=== PATIENT | male | born 1970 | race Caucasian/White ===

== ENCOUNTER 2023-07-29 11:04 | Emergency (ER) | payer BC ==
[2023-07-29 11:36] LABS: Absolute Lymphocytes (CBC) 1.9 K/uL (0.7-4.9); Hematocrit 45.4 % (39.6-49.0); Lymphocytes % 22.7 % (15.3-44.8); MCV 93.1 fL (80-100); MPV 7.7 fL (7.6-11.3); Platelets 207 thou/uL (152-406); RBC Red Blood Cell Count 4.88 M/uL (4.33-5.43)
[2023-07-29 11:42] LABS: Protime INR 1.77
[2023-07-29 11:55] LABS: Potassium 3.5 mEq/L (3.5-5.1); Troponin High Sensitivity 7.2 pg/mL (<58.9)
--- NOTE | 2023-07-29 11:57 | RAD REPORT ---
EXAM DESCRIPTION: CT - Ct Stroke Brain Wo Cont - 07/29/2023 11:49 am CLINICAL HISTORY: STROKE ALERT COMPARISON: Head angio dated 07/29/2023 TECHNIQUE: Noncontrast head CT images were obtained without IV contrast. Multiplanar reformats were generated and reviewed. All CT scans are performed using dose optimization technique as appropriate and may include automated exposure control or mA/KV adjustment according to patient size. FINDINGS: No intracranial hemorrhage, mass, or edema. Midline structures are unremarkable. Normal ventricular caliber for age. Smith-white matter differentiation is preserved, without evidence of acute infarct. No abnormal extra- axial fluid collections. Mastoid air cells and visualized portions of the paranasal sinuses are clear. No acute bony findings. IMPRESSION: No evidence of an acute intracranial process. The findings were communicated to Joao Espinoza on 07/29/2023 at 11:53 hours.
--- NOTE | 2023-07-29 12:12 | RAD REPORT ---
EXAM DESCRIPTION: CT - Head angio - 07/29/2023 11:43 am CLINICAL HISTORY: vision changes, HTN COMPARISON: Ct Stroke Brain Wo Cont dated 07/29/2023 TECHNIQUE: Axial CT angiography images of the head was performed with multiplanar and maximum intens ity projection reconstructions. Images performed following intravenous administration of 100mL Isovue 370. All CT scans are performed using dose optimization technique as appropriate and may include automated exposure control or mA/KV adjustment according to patient size. FINDINGS: No evidence of large vessel occlusion. No evidence of aneurysm or dissection flap is detec marc. No flow-limiting stenosis or vascular malformation identified. Antegrade flow is seen in the vertebral arteries. The left vertebral artery is patent. The right vert ebral artery is not opacified. The visualized dural venous sinuses are grossly patent. IMPRESSION: Non opacification of the right vertebral artery, could be developmental or related to a contusion of indeterminate age. The basilar artery and its branches are patent. No other evidence of large vessel occlusion or flow-limiting stenosis.
--- NOTE | 2023-07-29 12:18 | RAD REPORT ---
EXAM DESCRIPTION: MRI - Brain Wo Cont - 07/29/2023 12:09 pm CLINICAL HISTORY: vision changes COMPARISON: Noncontrast head CT of the same day TECHNIQUE: Multiplanar multisequence MRI of the brain performed without IV contrast. FINDINGS: Motion artifact somewhat limits evaluation, despite attempts at repeat imaging. No evidence of acute infarct or other diffusion signal abnormality. No evidence of acute intracranial hemorrhage or abnormal extra-axial fluid collections. Ventricular caliber within normal for age. Midline structures are unremarkable. No mass effect or midline shift. Major vascular flow voids are preserved. Mastoid air cells and paranasal sinuses are clear. IMPRESSION: No acute intracranial process. No evidence of ventriculomegaly or mass effect.
--- NOTE | 2023-07-29 13:30 | ER ---
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 reports left eye being more bothersome. Coronavirus screen: At this time, the client does not indicate any symptoms associated with coronavirus-19. Ebola Screen: No symptoms or risks identified at this time. Initial Sepsis Screen: Does the patient meet any 2 criteria? No. Patient's initial sepsis screen is negative. Does the patient have a suspected source of infection? No. Patient's initial sepsis screen is negative. Risk Assessment: Do you want to hurt yourself or someone else? Patient reports no desire to harm self or others. Onset of symptoms was July 29, 2023. 11:14 Method Of Arrival: Ambulatory kc6 11:14 Acuity: YESSICA 3 kc6 Triage Assessment: 11:15 General: Appears in no apparent distress. comfortable, Behavior is calm, cooperative, kc6 appropriate for age. Pain: Denies pain. EENT: Reports blurred vision. Neuro: Level of Consciousness is awake, alert, obeys commands, Oriented to person, place, time, situation, Appropriate for age Product Designer are equal bilaterally Moves all extremities. Full function Gait is steady, Speech is normal, Facial symmetry appears normal, Pupils are PERRLA, Intact Denies weakness numbness headache. Cardiovascular: Capillary refill < 3 seconds. Respiratory: Airway is patent Trachea midline Respiratory effort is even, unlabored, Respiratory pattern is regular, symmetrical. GI: No signs and/or symptoms were reported involving the gastrointestinal system. : No signs and/or symptoms were reported regarding the genitourinary system. Derm: No signs and/or symptoms reported regarding the dermatologic system. Skin is intact, is healthy with good turgor, Skin is pink, warm \T\ dry. Musculoskeletal: No signs and/or symptoms reported regarding the musculoskeletal system. Circulation, motion, and sensation intact. Capillary refill < 3 seconds, Range of motion: intact in all extremities. Historical: - Allergies: 11:15 PENICILLINS; kc6 - PMHx: 11:15 Atrial fibrillation; Hypertensive disorder; mitral valve prolapse; Diverticulitis; kc6 - PSHx: 11:15 None; kc6 - Immunization history:: Client reports receiving the 2nd dose of the Covid vaccine, Flu vaccine is not up to date. - Social history:: Smoking status: Patient reports use of chewing tobacco. - Family history:: not pertinent. - Hospitalizations: : No recent hospitalization is reported. Screenin:14 VAN Screening: Arm Drift: Patient shows no arm weakness. Patient is VAN negative. kc6 Visual Disturbance: No visual disturbance noted. Aphasia: No aphasia noted. Neglect: No neglect noted. 11:16 [facility] Fall Risk Assessment (Adult) History of falling in the last 3 months, kc6 including since admission No falls in past 3 months (0 pts) Confusion or Disorientation No (0 pts) Intoxicated or Sedated No (0 pts) Impaired Gait No (0 pts) Mobility Assist Device Used No (0 pt) Altered Elimination No (0 pt) Score/Fall Risk Level 0 - 2 = Low Risk. Abuse screen: Denies threats or abuse. Denies injuries from another. Nutritional screening: No deficits noted. Tuberculosis screening: No symptoms or risk factors identified. Assessment: 11:17 Reassessment: please see triage assessment. [facility] 12:18 Reassessment: Patient appears in no apparent distress at this time. Patient and/or [facility] family updated on plan of care and expected duration. Pain level reassessed. Patient is alert, oriented x 3, equal unlabored respirations, skin warm/dry/pink. Patient denies pain at this time. Patient states feeling better. Patient states symptoms have improved. 13:13 Reassessment: Patient appears in no apparent distress at this time. No changes from 6 previously documented assessment. Patient and/or family updated on plan of care and expected duration. Pain level reassessed. Patient is alert, oriented x 3, equal unlabored respirations, skin warm/dry/pink. Vital Signs: 11:14 BP 164 / 100; Pulse 81; Resp 16 S; Temp 98.4(O); Pulse Ox 96% on R/A; Weight 95.25 kg kc6 (R); Height 5 ft. 7 in. (R); 12:18 BP 124 / 98; Pulse 69; Resp 19 S; Pulse Ox 98% on R/A; kc6 13:14 BP 148 / 88; Pulse 73; Resp 16 S; Pulse Ox 94% on R/A; kc6 11:14 Body Mass Index 32.89 (95.25 kg, 170.18 cm) kc6 NIH Stroke Scale Scores: 11:14 NIHSS Score: 0 kc6 ED Course: 11:06 Patient arrived in ED. mr 11:06 Jesus Lake is Private Physician. mr 11:08 Izabela Barboza, RN is Primary Nurse. kc6 11:12 Joao Espinoza MD is Attending Physician. rn 11:15 Triage completed. kc6 11:15 Arm band placed on. kc6 11:16 Patient maintains SpO2 saturation greater than 95% on room air. kc6 11:17 Patient has correct armband on for positive identification. Bed in low position. Call kc6 light in reach. Side rails up X 1. Client placed on continuous cardiac and pulse oximetry monitoring. NIBP monitoring applied. library monitor on. 11:45 CT Head Angio In Process Unspecified. EDMS 11:45 CT Stroke Brain w/o Contrast In Process Unspecified. EDMS 12:03 Brain Wo Cont MRI In Process Unspecified. EDMS 13:13 X-ray completed. Portable x-ray completed in exam room. Patient tolerated procedure mh1 well. 13:17 Stroke CXR 1 View In Process Unspecified. EDMS 13:28 Crystal Martin MD is Referral Physician. rn 13:47 No provider procedures requiring assistance completed. IV discontinued, intact, kc6 bleeding controlled, No redness/swelling at site. Pressure dressing applied. Administered Medications: No medications were administered Medication: 13:47 VIS not applicable for this client. kc6 Outcome: 13:29 Discharge ordered by . rn 13:47 Discharged to home ambulatory, with friend, kc6 13:47 Condition: improved 13:47 Discharge instructions given to patient, Instructed on discharge instructions, follow up and referral plans. Demonstrated understanding of instructions, follow-up care, 13:47 Patient left the ED. kc6 NIH Stroke Scale - NIH Stroke Score Date: 07/29/2023 Time: 11:14 Total Score = 0 10. Dysarthria (speech clarity - read or repeat words) - 0(Normal) 11. Extinction and Inattention (visual/tactile/auditory/spatial/personal) - 0(No abnormality) 1a. Level of Consciousness (LOC) - 0(Alert) 1b. Level of Consciousness (LOC) (Month \T\ Age) - 0(Both) 1c. LOC Commands (Open \T\ Closes Eyes/Block Out Machine Operator) - 0(Both) 2. Best Gaze (Lateral Gaze Paresis) - 0(Normal) 3. Visual Field Loss - 0(No visual loss) 4. Facial Palsy - 0(Normal) 5a. Left Arm: Motor (10-second hold) - 0(No drift) 5b. Right Arm: Motor (10-second hold) - 0(No drift) 6a. Left Leg: Motor (5-second hold - always test supine) - 0(No drift) 6b. Right Leg: Motor (5-second hold - always test supine) - 0(No drift) 7. Limb Ataxia (finger/nose \T\ heel/cisneros - test with eyes open) - 0(Absent) 8. Sensory Loss (pinprick arms/legs/face) - 0(Normal) 9. 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
--- NOTE | 2023-07-29 13:30 | EDPHYS ---
Physician Documentation [facility] Name: Elizabeth Crowder Age: 52 yrs Sex: Male : 1970 Arrival Date: 07/29/2023 Time: 11:04 Bed 20 Private MD: Jesus Lake ED Physician Joao Espinoza HPI: 07/29 11:43 This 52 yrs old Male presents to ER via Ambulatory with complaints of Vision Problem. rn 11:43 The patient is experiencing blurred vision, floaters, The patient sustained None. rn caused by an unknown mechanism. Onset: The symptoms/episode began/occurred this morning. Duration: the symptoms are continuous. Aggravated by nothing. Alleviated by nothing. Patient wears glasses. Severity of symptoms: At their worst the symptoms were moderate in the emergency department the symptoms have improved. The patient has not experienced similar symptoms in the past. Patient reports at work this morning, started to feel throbbing in the back of his head and blurred vision. Describes patient deficits change as blurred vision, had trouble seeing the first 2 letters of every word, with floaters and flashes of light. No other focal neurological deficits. No weakness. Ambulatory. Patient reports this is never happened to her before. Patient states the visual changes have resolved as well as the headache. Does report just does not feel right but cannot be more specific. No chest pain. No loss of vision.. Historical: - Allergies: 11:15 PENICILLINS; kc6 - PMHx: 11:15 Atrial fibrillation; Hypertensive disorder; mitral valve prolapse; Diverticulitis; kc6 - PSHx: 11:15 None; kc6 - Immunization history:: Client reports receiving the 2nd dose of the Covid vaccine, Flu vaccine is not up to date. - Social history:: Smoking status: Patient reports use of chewing tobacco. - Family history:: not pertinent. - Hospitalizations: : No recent hospitalization is reported. ROS: 11:43 Constitutional: Negative for fever, chills, and weight loss, Eyes: Blurred vision with rn floaters and flashes of light. Neck: Negative for injury, pain, and swelling, Cardiovascular: Negative for chest pain, palpitations, and edema, Respiratory: Negative for shortness of breath, cough, wheezing, and pleuritic chest pain, Abdomen/GI: Negative for abdominal pain, nausea, vomiting, diarrhea, and constipation, MS/Extremity: Negative for injury and deformity, Skin: Negative for injury, rash, and discoloration, Neuro: Negative for weakness, numbness, tingling, and seizure, Exam: 11:43 Constitutional: This is a well developed, well nourished patient who is awake, alert, rn and in no acute distress. Head/Face: Normocephalic, atraumatic. Eyes: Pupils equal round and reactive to light, extra-ocular motions intact. Lids and lashes normal. Conjunctiva and sclera are non-icteric and not injected. Cornea within normal limits. Periorbital areas with no swelling, redness, or edema. All visual mike intact. No blurred vision or loss of vision when tested. Neck: Trachea midline, no masses palpated, and no cervical lymphadenopathy. Supple, full range of motion without nuchal rigidity, or vertebral point tenderness. No Meningismus. Cardiovascular: Regular rate and rhythm. No pulse deficits. Respiratory: No increased work of breathing, no retractions or nasal flaring. Neuro: Awake and alert, GCS 15, oriented to person, place, time, and situation. Cranial nerves II-XII grossly intact. Motor strength 5/5 in all extremities. Sensory grossly intact. Cerebellar exam normal. 12:20 ECG was reviewed by the Attending Physician. rn Vital Signs: 11:14 BP 164 / 100; Pulse 81; Resp 16 S; Temp 98.4(O); Pulse Ox 96% on R/A; Weight 95.25 kg kc6 (R); Height 5 ft. 7 in. (R); 12:18 BP 124 / 98; Pulse 69; Resp 19 S; Pulse Ox 98% on R/A; kc6 13:14 BP 148 / 88; Pulse 73; Resp 16 S; Pulse Ox 94% on R/A; kc6 11:14 Body Mass Index 32.89 (95.25 kg, 170.18 cm) kc6 NIH Stroke Scale Scores: 11:14 NIHSS Score: 0 kc6 MDM: 11:12 Patient medically screened. rn 13:27 Differential diagnosis: Amaurosis fugax, migraine, hypertension, retinal problem, rn vitreal hemorrhage, stroke, vascular problem. Data reviewed: vital signs, nurses notes, lab test result(s), EKG, radiologic studies, CT scan, MRI, and as a result, I will discharge patient. Counseling: I had a detailed discussion with the patient and/or guardian regarding the historical points, exam findings, and any diagnostic results supporting the discharge/admit diagnosis, lab results, radiology results, the need for outpatient follow up, to return to the emergency department if symptoms worsen or persist or if there are any questions or concerns that arise at home. Response to treatment: the patient's symptoms have resolved after treatment, the patient's condition has returned to base line, the patient is now symptom free, and as a result, I will discharge patient. Special discussion: I discussed with the patient/guardian in detail that at this point there is no indication for admission to the hospital. It is understood, however, that if the symptoms persist or worsen the patient needs to return immediately for re-evaluation. Based on the history and exam findings, there is no indication for further emergent testing or inpatient evaluation. I discussed with the patient/guardian the need to see the neurologist for further evaluation of the symptoms. I discussed with the patient/guardian the need to see the opthamologist for further evaluation of the symptoms. ED course: Patient back to baseline. Improvement of blood pressure. Already on antihypertensive. Recommend monitoring his blood pressure and following up with ophthalmology given acute INSPECTOR WREATH problems have been ruled out here with CT/CT angio/MRI. I have personally reviewed all of the results, including but not limited to blood tests and imaging deemed necessary to safely discharge this patient at this time. All results given to and printed out for patient. I personally went over all the results with the patient and answered all questions. Patient will follow-up with PCP and or specialist as discussed. Return precautions given and understood.. 13:33 ED course: Patient also reports previous neck injury as suspected on CT of the neck. rn Reports also surgical correction of cervical spine as well, both could explain opacification of right vertebral artery.. 07/29 11:18 Order name: Basic Metabolic Panel; Complete Time: 12: rn 07/29 11:18 Order name: CBC with Diff; Complete Time: 12: rn 07/29 11:18 Order name: High Sensitivity Troponin; Complete Time: 12: rn 07/29 11:18 Order name: Protime (+inr); Complete Time: 12: rn 07/29 11:18 Order name: Ptt, Activated; Complete Time: 12: rn 07/29 11:49 Order name: CREATININE WHOLE BLOOD; Complete Time: 12:08 EDMS 07/29 11:18 Order name: CT Head Angio; Complete Time: 12:31 rn 07/29 11:18 Order name: CT Stroke Brain w/o Contrast; Complete Time: 12:08 rn 07/29 11:18 Order name: Stroke CXR 1 View; Complete Time: 13:31 rn 07/29 11:18 Order name: Brain Wo Cont MRI; Complete Time: 12:31 rn 07/29 11:18 Order name: EKG; Complete Time: 11:19 rn 07/29 11:18 Order name: Accucheck; Complete Time: 11:38 rn 07/29 11:18 Order name: Cardiac monitoring; Complete Time: 11:38 rn 07/29 11:18 Order name: EKG - Nurse/Tech; Complete Time: 11:38 rn 07/29 11:18 Order name: IV Saline Lock; Complete Time: 11:39 rn 07/29 11:18 Order name: Labs collected and sent; Complete Time: 11:39 rn 07/29 11:18 Order name: NPO; Complete Time: 11:39 rn 07/29 11:18 Order name: O2 Per Protocol; Complete Time: 11:39 rn 07/29 11:18 Order name: O2 Sat Monitoring; Complete Time: 11:39 rn 07/29 11:18 Order name: Stroke Swallow Screen; Complete Time: 11:39 rn EC:20 Rate is 70 beats/min. Rhythm is regular. QRS [place]zone is Normal. [place] interval is normal. QRS rn interval is normal. QT interval is normal. No Q waves. T waves are Normal. No ST changes noted. Clinical impression: NSR w/ Non-specific ST/T Changes. Interpreted by me. Reviewed by me. Administered Medications: No medications were administered Disposition Summary: 07/29/23 13:29 Discharge Ordered Notes: Location: Home rn Problem: new rn Symptoms: have improved rn Condition: Stable rn Diagnosis - Unspecified visual disturbance rn Followup: rn - With: Crystal Martin MD - When: 2 - 3 days - Reason: Recheck today's complaints, Re-evaluation by your physician Discharge Instructions: - Discharge Summary Sheet rn - Visual Disturbances rn - How to Take Your Blood Pressure rn Forms: - Medication Reconciliation Form rn - Thank You Letter rn - Antibiotic brick burner - Prescription Opioid Use rn - Patient Portal Instructions rn - Leadership Thank You Letter rn NIH Stroke Scale - NIH Stroke Score Date: 07/29/2023 Time: 11:14 Total Score = 0 10. Dysarthria (speech clarity - read or repeat words) - 0(Normal) 11. Extinction and Inattention (visual/tactile/auditory/spatial/personal) - 0(No abnormality) 1a. Level of Consciousness (LOC) - 0(Alert) 1b. Level of Consciousness (LOC) (Month \T\ Age) - 0(Both) 1c. LOC Commands (Open \T\ Closes Eyes/Feeder Catcher Tobacco) - 0(Both) 2. Best Gaze (Lateral Gaze Paresis) - 0(Normal) 3. Visual Field Loss - 0(No visual loss) 4. Facial Palsy - 0(Normal) 5a. Left Arm: Motor (10-second hold) - 0(No drift) 5b. Right Arm: Motor (10-second hold) - 0(No drift) 6a. Left Leg: Motor (5-second hold - always test supine) - 0(No drift) 6b. Right Leg: Motor (5-second hold - always test supine) - 0(No drift) 7. Limb Ataxia (finger/nose \T\ heel/cisneros - test with eyes open) - 0(Absent) 8. Sensory Loss (pinprick arms/legs/face) - 0(Normal) 9. Best Language: Aphasia (description/naming/reading) - 0(No aphasia) Initials: kc6 Signatures: Dispatcher [employer] Joao Sanchez MD MD rn Campbell, Kaitlyn, RN RN kc6
--- NOTE | 2023-07-29 13:30 | RAD REPORT ---
EXAM DESCRIPTION: RAD - Chest Single View - 07/29/2023 1:15 pm CLINICAL HISTORY: vision changes Chest pain. COMPARISON: No comparisons FINDINGS: Portable technique limits examination quality. The lungs are grossly clear. The heart is upper limit of normal in size. No displaced fractures.Cervi liv hardware plate. IMPRESSION: No acute intrathoracic process suspected.
[2023-07-29 14:18] VITALS: TEMP 98.4
[2023-07-29 14:22] VITALS: BP 148/88; O2SAT 94
--- NOTE | 2023-07-31 17:29 | EKG ---
Test Date: 2023-07-29 Test Time: 11:28:16 Counter Weigher: DHAVAL MEASUREMENT RESULTS: Intervals: Rate: 70 [place]: 192 QRSD: 98 QT: 420 QTc: 453 [place]: P: 56 [place]: 192 QRS: 64 T: 50 INTERPRETIVE STATEMENTS: Normal sinus rhythm Septal infarct, age undetermined Abnormal ECG Compared to ECG 02/28/1998 14:19:00 Myocardial infarct finding now present Sinus bradycardia no longer present Electronically Signed On 07-31-23 17:23:25 AUTOMOTIVE SALES EXECUTIVE by Lew Rios
== END 2023-07-29 13:47 | disposition home or self-care (01) ==
LOC: ER 11:04
DX: H53.9 Unspecified visual disturbance (principal); I10 Essential (primary) hypertension; I48.91 Unspecified atrial fibrillation; Z88.0 Allergy status to penicillin
CPT/HCPCS: 36415; 70450; 70496; 70551; 71045; 80048; 82565; 84484; 85025; 85610; 85730; 93005; 99285